=== PATIENT | female | born 1975 | race Caucasian/White ===

== ENCOUNTER 2024-07-30 12:45 | Emergency (ER) | payer BC, SELFPAY ==
[2024-07-30 12:59] VITALS: BP 132/91
[2024-07-30 13:35] LABS: ALT (SGPT) 17 U/L (0-35); AST (SGOT) 19 U/L (14-36); Albumin 4.8 g/dl (3.5-5.0); Alkaline Phosphatase 44 U/L (38-126); Blood Urea Nitrogen 14 mg/dl (7-17); Calcium 9.9 mg/dl (8.4-10.2); Carbon Dioxide 26 mmol/L (22-30); Chloride 104 mmol/L (98-107); Glucose 123 mg/dl (70-99); Potassium 4.2 mmol/L (3.5-5.1); Sodium 138 mmol/L (135-145); Total Bilirubin 0.8 mg/dl (0.2-1.3); Total Protein 7.1 g/dl (6.3-8.2); eGFR > 60.00
[2024-07-30 13:36] LABS: % Basophils 0.6 % (0-2); % Eosinophils 0.5 % (0-6); % Immature Granulocytes 0.3 % (0-0.5); % Lymphocytes 16.3 % (20.5-51.1); % Monocytes 6.2 % (1.7-9.3); % Neutrophils 76.1 % (42.2-75.2); Absolute Basophils 0.1 10^3/uL (0-0.2); Absolute Lymphocytes 1.3 10^3/uL (1.2-3.4); Absolute Monocytes 0.5 10^3/uL (0.1-0.6); Absolute Neutrophils 5.9 10^3/uL (1.4-6.5); Hematocrit 41.1 % (37.0-47.0); Hemoglobin 13.8 g/dL (12.0-16.0); Mean Corp Hgb Conc. 33.6 g/dL (33.0-37.0); Mean Corpuscular Hgb 30.7 pg (27.0-31.0); Mean Corpuscular Volume 91.3 fL (81.0-99.0); Mean Platelet Volume 9.1 fL (7.4-10.4); Nucleated Red Blood Cells % 0 %; Platelet Count 276 10^3/uL (130-400); Red Cell Dist. Width 12.6 % (11.5-14.5); White Blood Cell Count 7.7 10^3/uL (4.8-10.8)
[2024-07-30 13:46] LABS: Troponin I < 0.012 ng/ml
--- NOTE | 2024-07-30 15:12 | ED.GENMED ---
History of Present Illness
General
Chief Complaint: Chest Pain
Source: patient
Time Seen by Provider: 07/30/24 15:08
Nursing documentation reviewed up to this point in time: agreed with
History of Present Illness
History of Present Illness:
Patient is a 49-year-old female presents to the ER for evaluation. Patient ports off and on since Tuesday for the past 2 days she has had intermittent chest comfort. She reports the chest discomfort would come and go and change positions.
Symptoms started around 6:30 PM while watching TV. She did a hot yoga class at 8:30 Tuesday morning and has not done that for the past 2 weeks and thought maybe this was a muscular chest pain. On Tuesday she cleaned and do chores around the house
and had no symptoms. She reports at various times not associate with exertion she would have some intermittent discomfort and rare various parts of her chest that will go away on its own. She also has some intermittent arm tingling. She reports
when she gets stressed she does simply get tingling in her jaw area. Today she had similar symptoms call her family doctor they recommended come to the ER. Presently she is asymptomatic. She has no cardiac history. She does not smoke. She is
not on oral contraceptives or hormone replacement. No family history of CAD no family history of DVT PE. She has no history of DVT PE. She had no shortness of breath with symptoms.
She denies any actual injury recent cough fever chills. She does report she did have some mild reflux at that time and does get reflux intermittently
Review of Systems
Review of Systems
Allergies reviewed?: Yes
All Other Systems: ROS reviewed and negative except as documented in HPI and ROS
Constitutional: Reports no symptoms; Denies fever, fatigue or chills
EENT: Reports no symptoms
Respiratory: Reports no symptoms
Cardiac: Reports chest pain (intermittent cp for past 3 days )
ABD/GI: Reports no symptoms
: Reports no symptoms
Musculoskeletal: Reports no symptoms
Skin: Reports no symptoms
Neurological: Reports other (tingling intermittent in upper extremities and left side )
Psychiatric: Reports no symptoms
Phy Exam
General Physical Exam
General Presentation: no apparent distress
General age: appears stated age
General Skin: warm
General Habitus: normal
General Mental: alert
General Hydration: appears well hydrated
Cardiovascular Exam
Cardiovascular Exam: regular rate/rhythm, no murmur and normal peripheral pulses
Pulmonary Exam
Pulmonary Exam: lungs clear and no respiratory distress
Neurological Exam
Neurological Exam: alert and oriented x3
Musculoskeletal Exam
Musculoskeletal Exam: full ROM
Skin Exam
Skin Exam: normal color and warm/dry
Scores
Heart Score for Chest Pain Patients
STEMI patient?: Not applicable
Course
Orders/Labs/Results
Orders:
Orders
07/30/24 12:46
EKG [Electrocardiogram (*1)] Urgent
Reason for Study: Chest Pain
EKG- Treatment ONCE
07/30/24 13:10
Complete Blood Count/With Diff Urgent
Comprehensive Metabolic Panel Urgent
Troponin I Urgent
07/30/24 15:31
Chest [CR Chest - 2 Views ] Urgent
Comment:
Reason For Exam: cp
Abnormal Lab Results
07/30/24
13:10
Neutrophils % 76.1 H %
(42.2-75.2)
Lymphocytes % 16.3 L %
(20.5-51.1)
Glucose 123 H mg/dl
(70-99)
07/30/24 13:10
07/30/24 13:10
Vital Signs
Initial and Last Documented VS:
Initial Vital Signs
Temp Pulse Resp BP Pulse Ox
98.9 F 83 18 132/91 85
07/30/24 12:59 07/30/24 12:59 07/30/24 12:59 07/30/24 12:59 07/30/24 12:59
Last Documented Vital Signs
Temp Pulse Resp BP Pulse Ox
98.9 F 77 16 128/89 98
07/30/24 12:59 07/30/24 15:51 07/30/24 16:00 07/30/24 15:51 07/30/24 15:51
MDM/Problems Addressed
Differential Diagnosis Includes:
Not limited to musculoskeletal chest pain less likely ACS, reflux not likely PE(patient not short of breath no risk factors)
MDM/Problems Addressed:
Patient no acute distress asymptomatic at this time she presented with intermittent various areas of chest discomfort since Tuesday not associate with exertion not associate with shortness of breath or diaphoresis. She has no cardiac history she
is no PE DVT risk factors or history. She has an unremarkable workup with a normal troponin and unremarkable EKG we will check a chest x-ray however will be stable for discharge home with outpatient follow-up. Discussed with patient to follow with
as well as her family doctor.
*Radiology
Radiology exam reviewed: radiology read reviewed
*Pulse Oximetry
Patient hypoxic: no
*EKG
Interpreted by ED Provider?: Yes
Interpretation: normal
Comparison EKG: no comparison EKG present
Heart Rate: 75
Rate: normal
Rhythm: sinus
Ischemia: no ischemia
*Critical Care Note
Total Time (30-74mins, 75-104mins- exclusive of procedures): Not Applicable
ED Attending Note
-
Portions of this chart may have been created with voice recognition software.� Occasional wrong word or��sound alike� substitutions may have occurred due to the inherent limitations of voice recognition software.
Discharge Plan
Departure
Patient Disposition: Home (Routine Discharge)
Date of Disposition: 07/30/24
Time of Disposition: 16:43
Patient with high blood pressure during this ER visit?: Yes
Condition: Fair
Covid-19: Not Applicable
Discharge Problem:
Chest pain
Instructions: Chest Pain That Is Not Caused by the Heart (DC), Chest Pain PCP Follow Up
Prescriptions:
No Action
multivitamin with minerals Capsule
1 cap PO DAILY
Referrals:
Kely Carnes PA-C [Family Provider] -
Yvan Jasso MD [Active] -
Activity Restrictions/Additional Instructions:
As discussed please call cardiology tomorrow along with your family doctor to schedule appointment as soon as possible for reevaluation of symptoms. Your workup was unremarkable here in the ER including normal cardiac enzymes no acute findings on
your EKG and normal chest x-ray.
Return if any worsening of symptoms.
Interventions
Interventions:
*Risk Screen - Suicide Last Done: 07/30/24 13:03
*General Assessment Last Done: 07/30/24 13:03
*Neglect/Abuse Screening Last Done: 07/30/24 13:03
*ED COVID-19 Vaccine History Last Done: 07/30/24 15:12
ED- Cardiac Assessment Last Done: 07/30/24 15:12
Discharge Date and Time
Print Language: [place] CITIZEN
[2024-07-30 15:51] VITALS: BP 128/89
== END 2024-07-30 16:49 | disposition home or self-care (01) ==
LOC: EMR 12:45
PROVIDERS: Emergency Medicine; EMERGENCY PHYSICIAN Emergency Medicine; FAMILY PHYSICIAN Physician Assistant
DX: R07.89 Other chest pain (principal); R20.2 Paresthesia of skin; K21.9 Gastro-esophageal reflux disease without esophagitis
CPT/HCPCS: 99285; 71046; 80053; 84484; 85025; 93005

== ENCOUNTER 2024-07-31 17:14 | Emergency (ER) | payer BC, SELFPAY ==
--- NOTE | 2024-07-31 17:23 | ED.GENMED ---
ED Provider Triage
<Cheng Cardoso Jr., PA-C - Last Filed: 07/31/24 17:24>
-
Patient seen by provider in Triage?: Seen in Triage
Attestation: A medical screening examination has been initiated by a qualified medical provider. Based on the assessment performed at this time, it has been determined that an emergent medical condition may exist and the patient has been informed
that further medical evaluation and possible additional diagnostic testing may be needed.
HPI: 49-year-old female here yesterday for similar symptoms. Here with chest pain lightheadedness and shortness of breath. Plan for repeated labs EKG without obvious changes.
GENERAL: Alert , in no apparent distress
EYE: No visual abnormalities.
NECK: Trachea midline
ENT: No visible abnormalities.
LUNGS: No acute respiratory distress
NEUROLOGICAL: Alert and oriented
SKIN: Skin intact. No visible changes.
MUSCULOSKELETAL: Moving extremities normally
PSYCH: Normal and appropriate interaction.
This is a medical evaluation conducted in person to initiate diagnostic evaluation and provide initial therapeutics. Please see further documentation by the treating clinician.
History of Present Illness
<Cheng Cardoso Jr., PA-C - Last Filed: 07/31/24 17:24>
General
Chief Complaint: Chest Pain
Time Seen by Provider: 07/31/24 20:19
<Bradley Langley DO - Last Filed: 07/31/24 22:36>
General
Source: patient
Exam Limitations: none
History of Present Illness
History of Present Illness:
See MDM
Past History
<Bradley Langley DO - Last Filed: 07/31/24 22:36>
Past History
ED Past Medical History: None
ED Past Surgical History: None
Social History
Tobacco: Non-smoker
Alcohol: None
Phy Exam
<Bradley M. Langley, DO - Last Filed: 07/31/24 22:36>
Physical Exam
Physical Exam:
See MDM
Scores
<Bradley Langley, DO - Last Filed: 07/31/24 22:36>
Heart Score for Chest Pain Patients
STEMI patient?: No
History: Slightly or Non-Suspicious
ECG: Normal
Age: >45 - <65 years
Risk Factors: No Risk Factors
Troponin: </= Normal Limit
Heart Score for Chest Pain Patients: 1
Heart Score Risk: 2.5% MACE over next 6 weeks
Course
<Cheng Cardoso Jr., PA-C - Last Filed: 07/31/24 17:24>
Orders/Labs/Results
Orders:
Orders
07/31/24 17:18
ECG [Electrocardiogram (*1)] Urgent
Reason for Study: Chest Pain
EKG- Treatment ONCE
07/31/24 17:29
Complete Blood Count/With Diff Urgent
Comprehensive Metabolic Panel Urgent
Magnesium Urgent
TSH Urgent
Troponin I Urgent
07/31/24 20:12
COVID-19 Antigen Urgent
Source: Nasal Swab
INF RAPID [Influenza A+B Rapid Molecular] Urgent
YU Source: Nasal Swab
Specimen Description:
07/31/24 20:30
CT Head W/o Iv Contrast Urgent
Comment:
Reason For Exam: persistent dizziness
Ondansetron Orally Disint [Zofran Odt (Orally Disintegrating)] 4 mg PO NOW STA
Abnormal Lab Results
07/31/24
17:29
Absolute Neuts (auto) 7.1 H 10^3/uL
(1.4-6.5)
Neutrophils % 77.3 H %
(42.2-75.2)
Lymphocytes % 14.9 L %
(20.5-51.1)
Carbon Dioxide 21 L mmol/L
(22-30)
Glucose 105 H mg/dl
(70-99)
Magnesium 2.4 H mg/dl
(1.6-2.3)
07/31/24 17:29
07/31/24 17:29
Vital Signs
Initial and Last Documented VS:
Initial Vital Signs
Temp Pulse Resp Pulse Ox
98.2 F 96 20 99
07/31/24 17:21 07/31/24 17:21 07/31/24 17:21 07/31/24 17:21
Last Documented Vital Signs
Temp Pulse Resp BP Pulse Ox
98.2 F 72 15 128/90 97
07/31/24 17:21 07/31/24 21:53 07/31/24 21:53 07/31/24 22:19 07/31/24 22:20
<Bradley Langley, DO - Last Filed: 07/31/24 22:36>
Orders/Labs/Results
Orders:
Orders
07/31/24 17:18
ECG [Electrocardiogram (*1)] Urgent
Reason for Study: Chest Pain
EKG- Treatment ONCE
07/31/24 17:29
Complete Blood Count/With Diff Urgent
Comprehensive Metabolic Panel Urgent
Magnesium Urgent
TSH Urgent
Troponin I Urgent
07/31/24 20:12
COVID-19 Antigen Urgent
Source: Nasal Swab
INF RAPID [Influenza A+B Rapid Molecular] Urgent
YU Source: Nasal Swab
Specimen Description:
07/31/24 20:30
CT Head W/o Iv Contrast Urgent
Comment:
Reason For Exam: persistent dizziness
Ondansetron Orally Disint [Zofran Odt (Orally Disintegrating)] 4 mg PO NOW STA
Abnormal Lab Results
07/31/24
17:29
Absolute Neuts (auto) 7.1 H 10^3/uL
(1.4-6.5)
Neutrophils % 77.3 H %
(42.2-75.2)
Lymphocytes % 14.9 L %
(20.5-51.1)
Carbon Dioxide 21 L mmol/L
(22-30)
Glucose 105 H mg/dl
(70-99)
Magnesium 2.4 H mg/dl
(1.6-2.3)
07/31/24 17:29
07/31/24 17:29
Vital Signs
Initial and Last Documented VS:
Initial Vital Signs
Temp Pulse Resp Pulse Ox
98.2 F 96 20 99
07/31/24 17:21 07/31/24 17:21 07/31/24 17:21 07/31/24 17:21
Last Documented Vital Signs
Temp Pulse Resp BP Pulse Ox
98.2 F 72 15 128/90 97
07/31/24 17:21 07/31/24 21:53 07/31/24 21:53 07/31/24 22:19 07/31/24 22:20
<Bradley Langley, DO - Last Filed: 07/31/24 22:36>
MDM/Problems Addressed
Differential Diagnosis Includes:
HPI and MDM Narrative:
49-year-old female presenting for evaluation of dizziness and chest pain. She was here yesterday for the same symptoms. She had negative workup and was sent home for PCP follow-up. Patient drank a lot of water last night presuming it could be
dehydration related. She states she woke up this morning feeling worse. Blood work was done prior to my evaluation which again shows no clinically relevant abnormalities. EKG still in sinus rhythm. Troponin still negative. On exam, she
complains of lightheadedness but denies room spinning sensation. She has normal finger-nose bilaterally.
Given the ongoing symptoms, will obtain CT head and viral testing
Physical exam
General: Well appearing and non-toxic
HEENT: protecting airway. Pupils equal reactive. EOMI
Neck: appears supple
CV: No evidence of cyanosis. Regular rate and rhythm
Resp: No accessory muscle use. Lungs clear
Abd: Non-distended
Extremities: No deformities
Neuro: alert. Normal finger-nose bilaterally. Negative [place]
Psych: Normal affect
Skin: Intact
Problems Addressed including Acute and Chronic Conditions affecting care:
1. Persistent lightheadedness
Acuity: acute
Prognosis: stable
Details: No cerebellar signs. She is well-appearing nontoxic. Cardiac testing negative. Will obtain CT head given persistent symptoms
Updates
Workup remains nondiagnostic. CT head negative. Blood work remains without clinically relevant abnormalities. At this time, mother and father at bedside. We discussed the negative workup and discussed further workup in the outpatient setting
which includes brain MRI and cardiology follow-up.
Differential Diagnosis (but not limited to): Vertigo, intracranial mass, dehydration, cardiac arrhythmia
Testing considered: D-dimer but tachycardic nor hypoxic
Drug therapy (if applicable): OTC meds, please see d/c instruction regarding Rx drugs
Amount and/or Complexity of Data Reviewed
Clinical info obtained from: Patient
External data reviewed: N/A
Labs I independently reviewed (but not limited to): Troponin negative
Radiology: The CT scan was personally and independently reviewed. In addition, official CT report reviewed.
Pulse Ox: not hypoxic
EKG independently reviewed: Sinus rhythm, normal axis, no STEMI
Data Clerk: Sinus rhythm
Critical Care: N/A
Risk of Complication:
Social Determinants of health: Good social support
Discussed with other providers: N/A
Escalation of Care includes Admit/Obs: After being observed in the Emergency Department, pt stable for discharge.
Occasional wrong word or 'sound a like' substitutions may have occurred due to the inherent limitations of voice recognition software. Read the chart carefully and recognize, using context, where substitutions have occurred.
<Bradley Langley DO - Last Filed: 07/31/24 22:36>
*Critical Care Note
Total Time (30-74mins, 75-104mins- exclusive of procedures): Not Applicable
ED Attending Note
<Cheng Cardoso Jr., PA-C - Last Filed: 07/31/24 17:24>
-
Portions of this chart may have been created with voice recognition software.� Occasional wrong word or��sound alike� substitutions may have occurred due to the inherent limitations of voice recognition software.
Discharge Plan
Departure
Patient Disposition: Home (Routine Discharge)
Date of Disposition: 07/31/24
Time of Disposition: 22:32
Patient with high blood pressure during this ER visit?: No
Discharge Problem:
Light-headedness
Instructions: Chest Pain DCA Follow Up
Prescriptions:
No Action
multivitamin with minerals Capsule
1 cap PO DAILY
Referrals:
Jimbo Scales MD [Active] -
Aarti Terrazas PA-C [Family Provider] -
Activity Restrictions/Additional Instructions:
Please return for any worsening symptoms.
You may return at any time if you have further concerns.
Please follow up with your doctor at the first available appointment, preferably this week. If symptoms persist, please talk to your doctor about outpatient brain MRI.
You were placed on the cardiac callback tracker. Someone from their office should call you in the next few days. If you do not hear from them in the next few days, please give them a call.
Thank you for choosing [facility].
Interventions
Interventions:
*Risk Screen - Suicide Last Done: 07/31/24 17:21
*General Assessment Last Done: 07/31/24 17:21
*Neglect/Abuse Screening Last Done: 07/31/24 17:21
ED- Fall Risk Assessment Last Done: 07/31/24 20:20
*ED COVID-19 Vaccine History Last Done: 07/31/24 20:19
ED- Cardiac Assessment Last Done: 07/31/24 20:20
Discharge Date and Time
Print Language: YI
[2024-07-31 17:25] VITALS: BP 130/92
[2024-07-31 17:40] LABS: % Basophils 0.5 % (0-2); % Eosinophils 0.5 % (0-6); % Immature Granulocytes 0.2 % (0-0.5); % Lymphocytes 14.9 % (20.5-51.1); % Monocytes 6.6 % (1.7-9.3); % Neutrophils 77.3 % (42.2-75.2); Absolute Basophils 0.1 10^3/uL (0-0.2); Absolute Eosinophils 0.1 10^3/uL (0-0.7); Absolute Lymphocytes 1.4 10^3/uL (1.2-3.4); Absolute Monocytes 0.6 10^3/uL (0.1-0.6); Absolute Neutrophils 7.1 10^3/uL (1.4-6.5); Hematocrit 41.6 % (37.0-47.0); Hemoglobin 14.1 g/dL (12.0-16.0); Mean Corp Hgb Conc. 33.9 g/dL (33.0-37.0); Mean Corpuscular Hgb 30.9 pg (27.0-31.0); Mean Platelet Volume 9.1 fL (7.4-10.4); Nucleated Red Blood Cells % 0 %; Platelet Count 293 10^3/uL (130-400); Red Blood Cell Count 4.57 10^6/uL (4.20-5.40); Red Cell Dist. Width 12.5 % (11.5-14.5); White Blood Cell Count 9.2 10^3/uL (4.8-10.8)
[2024-07-31 17:57] LABS: ALT (SGPT) 17 U/L (0-35); AST (SGOT) 20 U/L (14-36); Albumin 4.9 g/dl (3.5-5.0); Alkaline Phosphatase 53 U/L (38-126); Blood Urea Nitrogen 16 mg/dl (7-17); Calcium 9.7 mg/dl (8.4-10.2); Carbon Dioxide 21 mmol/L (22-30); Chloride 104 mmol/L (98-107); Glucose 105 mg/dl (70-99); Magnesium 2.4 mg/dl (1.6-2.3); Potassium 4.2 mmol/L (3.5-5.1); Sodium 137 mmol/L (135-145); Total Bilirubin 0.8 mg/dl (0.2-1.3); Total Protein 7.3 g/dl (6.3-8.2); eGFR > 60.00
[2024-07-31 18:03] LABS: Troponin I < 0.012 ng/ml
[2024-07-31 18:25] LABS: TSH 0.74 uIU/ml (0.47-4.68)
[2024-07-31 20:10] VITALS: BMI 21.2
[2024-07-31 20:13] VITALS: BP 134/91
[2024-07-31] MEDS: ZOFRAN ODT (ORALLY DISINTEGRATING) 4 MG PO (20:39)
[2024-07-31 20:43] LABS: COVID-19 Antigen Negative (Negative)
[2024-07-31 21:00] VITALS: BP 139/101
[2024-07-31 21:04] VITALS: BP 140/96
[2024-07-31 22:19] VITALS: BP 128/90
== END 2024-07-31 22:42 | disposition home or self-care (01) ==
LOC: EMR 17:14
PROVIDERS: Physician Assistant; EMERGENCY PHYSICIAN Student in an Organized Health Care Education/Training Program; FAMILY PHYSICIAN Physician Assistant Medical
DX: R42 Dizziness and giddiness (principal); Z11.52 Encounter for screening for COVID-19
CPT/HCPCS: 99285; 70450; 80053; 83735; 84443; 84484; 85025; 87502; 87811; 93005